=== PATIENT | male | born 1970 | race Caucasian/White ===

== ENCOUNTER → 2020-12-10 | Outpatient (CLI) | payer OTHER ==
[~2020-12-10] MED LIST: ASPIRIN CHEWABL81 MG PO; ASPIRIN EC81 MG PO; ATORVASTATIN CA20 MG PO; GLUCOPHAGE 500500 MG PO; LOPRESSOR 25 MG25 MG PO; METFORMIN HCL1000 MG PO; NITROGLYCERIN0.4 MG SL
[2020-12-10 08:09] LABS: HEMOGLOBIN 15.2 gm/dl (14.0-17.5); RED BLOOD COUNT 5.34 M/UL (4.20-5.50); WHITE BLOOD COUNT 5.2 K/UL (4.5-11.0)
[2020-12-10 08:37] LABS: BUN/CREATININE RATIO 28 (0-10)
[2020-12-11 08:15] LABS: VITAMIN D, 25-HYDROXY 26.2 ng/mL (30.0-100.0)
== END ==
LOC: LAB 07:35
PROVIDERS: Nurse Practitioner
DX: E11.9 Type 2 diabetes mellitus without complications (principal); E78.49 Other hyperlipidemia; E55.9 Vitamin D deficiency, unspecified; I10 Essential (primary) hypertension; Z12.5 Encounter for screening for malignant neoplasm of prostate
CPT/HCPCS: 36415; 80053; 80061; 81001; 83036; 84153; 84436; 84443; 84480; 85025

== ENCOUNTER → 2021-04-09 | Outpatient (CLI) | payer OTHER ==
[2021-04-09 08:06] LABS: HEMOGLOBIN 14.4 gm/dl (14.0-17.5); RED BLOOD COUNT 5.11 M/UL (4.20-5.50); WHITE BLOOD COUNT 4.7 K/UL (4.5-11.0)
[2021-04-09 08:58] LABS: BUN/CREATININE RATIO 22 (0-10)
[2021-04-10 05:09] LABS: THYROXINE (T4) 6.7 ug/dL (4.5-12.0); VITAMIN D, 25-HYDROXY 28.4 ng/mL (30.0-100.0)
== END ==
LOC: LAB 06:20
PROVIDERS: Nurse Practitioner
DX: M79.672 Pain in left foot (principal); I10 Essential (primary) hypertension; E78.5 Hyperlipidemia, unspecified; E11.9 Type 2 diabetes mellitus without complications; R53.83 Other fatigue; E55.9 Vitamin D deficiency, unspecified; R93.6 Abnormal findings on diagnostic imaging of limbs
CPT/HCPCS: 36415; 73600; 73620; 80053; 80061; 81001; 83036; 84153; 84436; 84443; 84480; 84550; 85025

== ENCOUNTER → 2021-11-03 | Outpatient (CLI) | payer OTHER ==
[2021-11-03 08:05] LABS: BUN/CREATININE RATIO 23 (0-10)
[2021-11-03 08:25] LABS: RED BLOOD COUNT 5.06 M/UL (4.20-5.50); WHITE BLOOD COUNT 4.9 K/UL (4.5-11.0)
== END ==
LOC: LAB 07:12
PROVIDERS: Nurse Practitioner Family
DX: Z12.5 Encounter for screening for malignant neoplasm of prostate (principal); E11.9 Type 2 diabetes mellitus without complications; E78.5 Hyperlipidemia, unspecified; R53.83 Other fatigue
CPT/HCPCS: 36415; 80053; 80061; 81001; 83036; 84153; 84443; 85025